=== PATIENT | male | born 1995 | race Caucasian/White ===

== ENCOUNTER 2019-10-07 19:48 | Emergency (ER) | payer BC, MEDICAID ==
[~2019-10-07] VITALS: Ht 170.2 cm; Wt 90.0 kg
[~2019-10-07 19:48] MED LIST: DOCU-28 PO; HYDR30CR79 TP; NO HOME MEDS
[2019-10-07 20:09] LABS: BASOPHILS % (AUTO) 0.3 % (0-1); EOSINOPHILS # (AUTO) 0.2 X10'3 (0-0.9); EOSINOPHILS % (AUTO) 1.9 % (0-6); HEMATOCRIT 45.5 % (42.0-52.0); HEMOGLOBIN 15.6 g/dl (14.0-17.9); LYMPHOCYTES # (AUTO) 2.2 X10'3 (1.1-4.8); LYMPHOCYTES % (AUTO) 27.2 % (21-51); MEAN CORPUSCULAR HEMOGLOBIN 29.8 PG (27.0-31.0); MEAN CORPUSCULAR HGB CONC 34.3 g/dL (33.0-36.5); MEAN CORPUSCULAR VOLUME 86.9 FL (78-98); MEAN PLATELET VOLUME 8.6 FL (7.4-10.4); MONOCYTES # (AUTO) 0.8 X10'3 (0-0.9); MONOCYTES % (AUTO) 9.2 % (2-12); NEUTROPHILS % (AUTO) 61.4 % (42-75); PLATELET COUNT 234 X10'3 (140-440); RED BLOOD COUNT 5.23 X10'6 (4.70-6.10); RED CELL DISTRIBUTION WIDTH 13.5 % (11.5-14.5); WHITE BLOOD COUNT 8.2 X10'3 (4.5-11.0)
[2019-10-07 20:20] LABS: ALANINE AMINOTRANSFERASE 80 U/L (12-78); ALBUMIN 3.9 G/DL (3.4-5.0); ALBUMIN/GLOBULIN RATIO 1.1 (1.1-1.5); ALKALINE PHOSPHATASE 85 IU/L (46-116); ANION GAP 4 (8-16); ASPARTATE AMINO TRANSFERASE 38 U/L (10-37); BILIRUBIN,TOTAL 0.3 MG/DL (0.1-1.0); BLOOD UREA NITROGEN 17 MG/DL (7-18); BUN/CREATININE RATIO 18.7 (5.4-32.0); CALCIUM 8.7 MG/DL (8.5-10.1); CHLORIDE 109 MMOL/L (99-107); CREATININE 0.91 MG/DL (0.60-1.10); GLUCOSE 82 MG/DL (70-104); POTASSIUM 3.9 MMOL/L (3.5-5.1); SODIUM 143 MMOL/L (135-145); TOTAL CARBON DIOXIDE 30.4 MMOL/L (24-32); TOTAL PROTEIN 7.5 G/DL (6.4-8.2); eGFR > 90 ML/MIN
[2019-10-07 22:23] VITALS: BP 123/87
== END 2019-10-07 22:21 | disposition home or self-care (01) ==
LOC: ER 19:52
DX: R07.89 Other chest pain (principal); M25.561 Pain in right knee; F12.90 Cannabis use, unspecified, uncomplicated; Z79.899 Other long term (current) drug therapy
CPT/HCPCS: 36415; 71045; 80053; 84484; 85025; 93005; 99285

== ENCOUNTER 2022-01-24 00:28 | Emergency (ER) | payer BC ==
[~2022-01-24] VITALS: Ht 170.2 cm; Wt 96.8 kg
[2022-01-24 02:04] LABS: ALANINE AMINOTRANSFERASE 87 U/L (12-78); ALBUMIN 3.8 G/DL (3.4-5.0); ALBUMIN/GLOBULIN RATIO 1.1 (1.1-1.5); ALKALINE PHOSPHATASE 80 IU/L (46-116); ANION GAP 12 (8-16); ASPARTATE AMINO TRANSFERASE 28 U/L (10-37); BILIRUBIN,TOTAL 0.3 MG/DL (0.1-1.0); BLOOD UREA NITROGEN 13 MG/DL (7-18); CALCIUM 8.7 MG/DL (8.5-10.1); CHLORIDE 108 MMOL/L (99-107); CREATININE 0.93 MG/DL (0.60-1.10); ETHANOL < 0.010 GM/DL (0.0-0.010); GLUCOSE 114 MG/DL (70-104); POTASSIUM 3.5 MMOL/L (3.5-5.1); SODIUM 146 MMOL/L (135-145); TOTAL CARBON DIOXIDE 25.6 MMOL/L (24-32); TOTAL PROTEIN 7.4 G/DL (6.4-8.2); eGFR > 90 ML/MIN
[2022-01-24 02:08] LABS: URINE AMPHETAMINE SCREEN NEGATIVE (Neg); URINE BARBITUATE SCREEN NEGATIVE (Neg); URINE BENZODIAZEPINES SCREEN NEGATIVE (Neg); URINE CANNABINOID SCREEN NEGATIVE (Neg); URINE COCAINE SCREEN NEGATIVE (Neg); URINE METHADONE SCREEN NEGATIVE (Neg); URINE OPIATE SCREEN NEGATIVE (Neg); URINE PHENCYCLIDINE SCREEN NEGATIVE (Neg)
[2022-01-24 02:17] LABS: BASOPHILS % (AUTO) 0.2 % (0-1); EOSINOPHILS # (AUTO) 0.2 X10'3 (0-0.9); EOSINOPHILS % (AUTO) 1.4 % (0-6); HEMATOCRIT 45.2 % (42.0-52.0); HEMOGLOBIN 15.3 g/dl (14.0-17.9); LYMPHOCYTES # (AUTO) 2.6 X10'3 (1.1-4.8); LYMPHOCYTES % (AUTO) 23.9 % (21-51); MEAN CORPUSCULAR HEMOGLOBIN 29.5 PG (27.0-31.0); MEAN CORPUSCULAR HGB CONC 33.8 g/dL (33.0-36.5); MEAN CORPUSCULAR VOLUME 87.3 FL (78-98); MEAN PLATELET VOLUME 8.6 FL (7.4-10.4); MONOCYTES # (AUTO) 1.1 X10'3 (0-0.9); MONOCYTES % (AUTO) 10.2 % (2-12); NEUTROPHILS % (AUTO) 64.3 % (42-75); PLATELET COUNT 244 X10'3 (140-440); RED BLOOD COUNT 5.18 X10'6 (4.70-6.10); RED CELL DISTRIBUTION WIDTH 13.4 % (11.5-14.5)
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
--- NOTE | 2022-01-24 04:04 | NUR ---
Phone numbers: Gabrielle Tapia (mother): Liliana Winslow (Boss):
--- NOTE | 2022-01-24 06:00 | NUR ---
Resting in bed. No apparent distress. Resp even and unlabored.
--- NOTE | 2022-01-24 06:33 | NUR ---
Patient sleeping on left side. No distress observed. Continue to monitor.
--- NOTE | 2022-01-24 08:36 | NUR ---
[facility] evaluating patient. Continue to monitor.
--- NOTE | 2022-01-24 10:17 | NUR ---
Patient sleeping on right side. No distress observed. Continue to monitor.
--- NOTE | 2022-01-24 12:03 | NUR ---
Patient eating lunch. No distress observed. Continue to monitor.
--- NOTE | 2022-01-24 14:06 | NUR ---
Patient sleeping supine. No distress observed. Continue to monitor.
--- NOTE | 2022-01-24 16:03 | NUR ---
Patient sleeping on left side. No distress observed. Continue to monitor.
--- NOTE | 2022-01-24 18:09 | NUR ---
Patient sitting up and eating. No distress observed. Continue to monitor.
--- NOTE | 2022-01-24 18:48 | NUR ---
Patient is sleeping in a right lateral recumbant position.
--- NOTE | 2022-01-24 19:31 | NUR ---
Patients mother Gabrielle called. Patient is sleeping. She would like patient to know she called when he awakens.
--- NOTE | 2022-01-24 21:35 | NUR ---
Patient is sleeping quietly on his right side. He is in direct view from the nurses station.
--- NOTE | 2022-01-24 22:32 | NUR ---
Patient is sleeping quietly on his right side.
--- NOTE | 2022-01-25 02:52 | NUR ---
Patient is sleeping on his left side. No distress.
--- NOTE | 2022-01-25 06:43 | NUR ---
Patient sleeping on left side. No distress observed. Continue to monitor.
[2022-01-25 07:03] VITALS: BP 103/64
--- NOTE | 2022-01-25 07:05 | NUR ---
Rony Lockwood called to get info on patient and will present patient at [phone].
--- NOTE | 2022-01-25 08:11 | NUR ---
Patient eating breakfast. No distress observed. Continue to monitor.
--- NOTE | 2022-01-25 09:27 | NUR ---
Patient accepted at [facility] in [place]. Looking for ross carrier driver to arrive around 12:30-1.
--- NOTE | 2022-01-25 09:35 | NUR ---
RN advised patient of his transfer so his family could visit him. Patient got upset and stated he wanted to leave. RN explained that he was on a legal hold and couldn't leave. Patient called his mom and asked her to come see him. Patient was polite. Continue to monitor.
--- NOTE | 2022-01-25 10:48 | NUR ---
Patient's parent's visiting and doesn't want him to go out of town to a facility. They want to speak to the [facility] chocolate coater. Continue to monitor.
--- NOTE | 2022-01-25 11:40 | NUR ---
Patient atempted to walk out when mother walked out. RN called Security. Patient came back and Mother is now sitting with patient. Security at side. Continue to monitor.
[2022-01-25] MEDS ORDERED: NICOTINE POLACRILEX 2 MG LOZENGE BC PRN (11:45)
[2022-01-25] MEDS: diazepam 5mg tablet PO ONE ×2 (11:52→11:56)
--- NOTE | 2022-01-25 12:06 | NUR ---
Dr Madison ordered 10 mg Valium PO. Patient refused and stated he doesn't believe in taking any medication. Patient also refused nicotine lozenge. Patient states he smokes 2 packs of cigarettes per day. RN explained it will help him in the car ride to [facility] that he adamantly does not want to go. Patient still refused. Continue to monitor. Father at bedside.
== END 2022-01-25 13:40 ==
LOC: ER 00:29
DX: R45.851 Suicidal ideations (principal); Z20.822 Contact with and (suspected) exposure to COVID-19; F12.10 Cannabis abuse, uncomplicated; Z87.81 Personal history of (healed) traumatic fracture
CPT/HCPCS: 36415; 80053; 80305; 80320; 85025; 87811; 99285